=== PATIENT | male | born 1985 | race Two or more races ===

== ENCOUNTER 2021-09-15 20:56 | Emergency (ER) | payer MEDICAID ==
[~2021-09-15] VITALS: Ht 182.9 cm; Wt 90.7 kg
--- NOTE | 2021-09-15 21:00 | NUR ---
PT BIBRA C/O CHEST PRESSURE AND SOB. PT AAOX4 BREATHING EVENLY AND UNLABORED. PER PT IT "FEELS LIKE I HAVE TO WORK HARD TO TAKE A DEEP BREATH" PT ATTACHED TO MONITOR AND POX. PT SATURATING 97% RA. UPON ASSESSMENT, PT DOES HAVE WHEEZES. LT AC 20 INITIATED AND BLOOD OBTAINED AND SENT TO LAB. JESSICA CURIEL AT BEDSIDE FOR EVAL. PT GIVEN BLANKET AND CALL LIGHT WITHIN REACH
--- NOTE | 2021-09-15 21:09 | NUR ---
CALLED RT FOR BREATHING TX
[2021-09-15 21:22] LABS: BASOPHILS # (AUTO) 0.1 K/uL (0.0-0.2); BASOPHILS % (AUTO) 0.8 % (0.0-2.0); HEMATOCRIT 44 % (39-51); HEMOGLOBIN 15.3 g/dL (13.5-17.5); LYMPHOCYTES % (AUTO) 27.7 % (20.0-44.0); MEAN CORPUSCULAR HGB CONC 35 g/dl (31.0-36.0); MEAN CORPUSCULAR VOLUME 86 fL (80-96); MONOCYTES # (AUTO) 0.6 K/uL (0.1-1.30); MONOCYTES % (AUTO) 8.8 % (2.0-12.0); NEUTROPHILS # (AUTO) 4.1 K/uL (1.8-8.9); NEUTROPHILS % (AUTO) 57.7 % (43.0-81.0); PLATELET COUNT (AUTO) 330 K/uL (150-450); RED BLOOD CELL COUNT(AUTO) 5.16 MIL/uL (4.5-6.0); WHITE BLOOD COUNT (AUTO) 7.2 K/uL (4.3-11.0)
[2021-09-15] MEDS ORDERED: predniSONE 20 MG TABLET PO ONE (21:30)
[2021-09-15] MEDS ORDERED: ALBUTEROL FS 2.5 MG/3 ML VIAL.NEB NEB ONE (21:30)
[2021-09-15] MEDS ORDERED: IPRATROPIUM NEB FS 0.5 MG/2.5 ML AMPUL.NEB NEB ONE (21:30)
[2021-09-15 21:33] LABS: CALCIUM, SERUM 9.1 mg/dL (8.5-10.1); CARBON DIOXIDE 27 mmol/L (21-32); CHLORIDE 103 mmol/L (98-107); CREATININE 1.3 mg/dL (0.6-1.3); GLUCOSE 112 mg/dL (74-106); POTASSIUM 3.3 mmol/L (3.5-5.1); SODIUM SERUM 138 mmol/L (136-145); UREA NITROGEN, BLOOD 19 mg/dL (7-18)
[2021-09-15] MEDS ORDERED: IPRATROPIUM NEB FS 0.5 MG/2.5 ML AMPUL.NEB ONE (21:37)
[2021-09-15] MEDS ORDERED: ALBUTEROL FS 2.5 MG/3 ML VIAL.NEB ONE (21:37)
[2021-09-15] MEDS ORDERED: predniSONE 20 MG TABLET ONE (21:41)
[2021-09-15 21:45] LABS: ALANINE AMINOTRANSFERASE 38 U/L (12-78); ALBUMIN 4.4 g/dL (3.4-5.0); ALKALINE PHOSPHATASE 63 U/L (46-116); ASPARTATE AMINOTRANSFERASE 17 U/L (15-37); BILIRUBIN,DIRECT 0.1 mg/dL (0.0-0.2); BILIRUBIN,TOTAL 0.4 mg/dL (0.2-1.0); TOTAL PROTEIN, SERUM 8.2 g/dL (6.4-8.2)
--- NOTE | 2021-09-15 21:45 | NUR ---
RT AT BEDSIDE FOR BREATHING TX
--- NOTE | 2021-09-15 22:37 | NUR ---
AT PT'S BEDSIDE
[2021-09-15] MEDS ORDERED: IBUP-1955 PO (22:45)
[2021-09-15] MEDS ORDERED: ALBU18HF2 INH (22:45)
[2021-09-15] MEDS ORDERED: PRED20TA PO (22:45)
--- NOTE | 2021-09-15 22:54 | NUR ---
SENT COVID SWAB TO LAB
[2021-09-15] MEDS ORDERED: IV NS 0.9% 1,000 ML BAG IV ONE (23:00)
--- NOTE | 2021-09-15 23:45 | NUR ---
Patient discharged to home in stable condition. Written and verbal after care instructions given. Patient verbalizes understanding of instruction. IV removed. Catheter intact and site benign. Pressure and 4x4 applied to site. No bleeding noted. PT ambulatory with a steady gait
[2021-09-16 00:07] VITALS: BP 143/70
== END 2021-09-15 23:45 | disposition home or self-care (01) ==
LOC: ER 20:58
DX: J98.01 Acute bronchospasm (principal); R07.9 Chest pain, unspecified; Z20.822 Contact with and (suspected) exposure to COVID-19; E87.6 Hypokalemia
CPT/HCPCS: 36415; 71045; 80048; 80076; 83690; 83735; 83880; 84484; 85025; 86140; 87426; 93005; 94644; 96360; 99285; C9803; J7030; J7512